=== PATIENT | female | born 1990 | race Caucasian/White ===

== ENCOUNTER → 2016-07-26 | Outpatient (CLI) | payer BC | LOC: RAD 08:11 | PROVIDERS: ATTEND Family Medicine | DX: R10.11 Right upper quadrant pain (principal) | CPT/HCPCS: 76705 ==

== ENCOUNTER → 2016-08-20 | Outpatient (CLI) | payer BC ==
[~2016-08-20] MED LIST: HYDR-3754 PO; birth control
--- NOTE | 2016-08-20 11:23 | Diagnostic Imaging Report ---
INDICATION: Biliary colic, right upper quadrant pain. COMPARISON: Gallbladder ultrasound of 07/26/2016 TECHNIQUE: Anterior scintigraphic imaging of the abdomen was performed after the intravenous administration of 8.1 mCi Tc-99m Choletec. FINDINGS: The upper abdomen was imaged for 60 minutes with the gamma camera. There is prompt homogeneous uptake of radiopharmaceutical by the liver. There is activity in the common duct and gallbladder by 8 minutes. Small bowel activity is seen by 10 minutes. After 60 minutes, the patient received CCK. After 30 minutes, the gallbladder ejection fraction was calculated to be 63% which is normal. IMPRESSION: Normal hepatobiliary study with gallbladder ejection fraction of 63%. Dictated by: Dictated on workstation # [id number]
== END ==
LOC: RAD 08:16
PROVIDERS: ATTEND Family Medicine
DX: K80.50 Calculus of bile duct without cholangitis or cholecystitis without obstruction (principal)
CPT/HCPCS: 78226; A9537; J2805